=== PATIENT | male | born 1955 | race Caucasian/White ===

== ENCOUNTER → 2024-12-16 | Day surgery (SDC) | payer OTHER, MEDICARE ==
--- NOTE | 2024-12-11 10:36 | RAD REPORT ---
EXAMINATION: TWO VIEW CHEST XR CLINICAL INDICATION: pre op for day surgery TECHNIQUE: 2 views of the chest was performed. COMPARISON: No prior exam. FINDINGS: The lungs are well inflated and clear. The heart is normal in size. No displaced fractures evident. S evere osteoarthritis right shoulder. IMPRESSION: No acute or significant abnormalities.
[2024-12-11 10:55] LABS: Absolute Lymphocytes (CBC) 2.2 K/uL (0.7-4.9); Absolute Monocytes 0.7 K/uL (0.1-1.3); Basophils % 0.4 % (0-1.3); Eosinophils % 0.4 % (0-4.4); Hematocrit 44.5 % (39.6-49.0); Hemoglobin 15.7 g/dL (13.6-17.9); Lymphocytes % 37.3 % (15.3-44.8); MCH 32.1 pg (27.0-35.0); MCHC 35.3 g/dL (32.0-36.0); MCV 90.8 fL (80-100); MPV 8.8 fL (7.6-11.3); Neutrophils % 49.9 % (41.7-73.7); Nucleated Red Blood Cells % 0.1 % (0-0); Platelets 198 thou/uL (152-406); Red Cell Distribution Width 14.1 % (12.1-15.2)
[2024-12-11 11:03] LABS: PT Prothrombin Time 11.4 SECONDS (10-13.0); PTT, Activated Partial Thromb 27.2 SECONDS (27.2-37.4)
[2024-12-11 11:06] LABS: Specific Gravity 1.024 (1.005-1.030); Urine Bilirubin NEGATIVE (Negative); Urine Blood Negative (Negative); Urine Clarity Clear (Clear); Urine Color Light-Yellow (Yellow); Urine Glucose NEGATIVE (Negative); Urine Ketones NEGATIVE (Negative); Urine Microscopic Reflex YN NO UMIC; Urine Nitrite NEGATIVE (Negative); Urine Protein NEGATIVE (Negative); Urine Urobilinogen Normal (Normal); Urine pH 6.5 (5.0-7.0)
[2024-12-11 11:13] LABS: Anion Gap 10.2 mEq/L (5.0-15.0); Potassium 4.2 mEq/L (3.5-5.1)
--- NOTE | 2024-12-15 11:35 | EKG ---
Test Date: 2024-12-11 Test Time: 10:07:58 Casualty Claims Supervisor: MALGORZAAT MEASUREMENT RESULTS: Intervals: Rate: 69 ND: 136 QRSD: 84 QT: 392 QTc: 420 [place]: P: 53 ND: 136 QRS: 65 T: 59 INTERPRETIVE STATEMENTS: Normal sinus rhythm Normal ECG Compared to ECG 11/26/2016 20:50:21 No significant changes Electronically Signed On 12-15-24 11:24:26 CDT by Tristin Pérez
[~2024-12-16] MED LIST: DOCUSATE NA 100 MG CAP PO PRN; EPHEDRINE SULF 50 MG/ML VIAL ONE; FENTANYL CITR 100 MCG/2 ML ONE; KETAMINE HCL IN 0.9 % NACL 50 MG/5 ML SYRINGE IV ONE; LIDOCAINE 1% MPF 5 ML VIAL ONE; LIDOCAINE 2% MPF 5 ML VIAL ONE; MIDAZOLAM HCL 2 MG/2 ML INJ ONE; NS 0.9% VIAL 10 ML ONE; ONDANSETRON 4 MG/2 ML VIAL IV PRN; ONDANSETRON 4 MG/2 ML VIAL ONE; Phenylephrine HCl 10 MG/ML 1 ML VIAL ONE; propofoL 200 MG/20 ML VIAL IV ONE
[2024-12-16] MEDS: DEXMEDETOMIDINE HCL 200 MCG/2 ML VIAL ONE (07:10)
[2024-12-16] MEDS: MORPHINE SULFATE/PF 1 MG/ML (10 ML AMP) ONE (07:10)
[2024-12-16] MEDS: MAGNESIUM SULFATE 1 gm IVPB 1 GM/100 ML BAG IV ONE (07:11)
[2024-12-16] MEDS: Ringers Lactate 1,000 ML IV ONE ×3 (07:15→12:02)
[2024-12-16] MEDS: ACETAMINOPHEN 500 MG TAB ONE (07:24)
[2024-12-16] MEDS: GABAPENTIN 100 MG CAP ONE (07:24)
[2024-12-16] MEDS: CELECOXIB 100 MG CAPSULE ONE (07:24)
[2024-12-16] MEDS: Oxycodone HCl/Acetaminophen 5/325 MG TAB ONE (07:24)
[2024-12-16] MEDS: TRANEXAMIC ACID 1,000 MG/10 ML VIAL IV ONE (07:45)
[2024-12-16] MEDS: CEFAZOLIN SODIUM 2 GM/VIAL ONE (08:39)
--- NOTE | 2024-12-16 10:07 | P.BOP ---
Preoperative diagnosis: right hip arthritis Postoperative diagnosis: same Primary procedure: right total hip Estimated blood loss: 150 ccs Anesthesia: General Complications: None Transferred to: Recovery Room Condition: Good
[2024-12-16 10:57] LABS: Hematocrit 38.8 % (39.6-49.0); Hemoglobin 13.3 g/dL (13.6-17.9)
--- NOTE | 2024-12-16 11:06 | RAD REPORT ---
EXAM: XR Hip Right 1 View HISTORY: [facility] MAIN TOTAL HIP COMPARISON: None TECHNIQUE: One view of the right hip FINDINGS: Acetabular and femoral stem components of right hip arthroplasty in place. Surgical field d efect present at the level of the joint. Other surgical instruments near the midline. No displaced fractures are seen. The visualized soft tissues are otherwise unremarkable. IMPRESSION: Expected intraoperative appearance of right hip arthroplasty components.
--- NOTE | 2024-12-16 12:43 | OP ---
Date of Procedure: 12/16/2024 Surgeon: Ronak Castillo MD Preoperative Diagnosis: Right hip severe arthritis. Postoperative Diagnosis: Right hip severe arthritis. Procedure: Right total hip arthroplasty using the Townsend system. Estimated Blood Loss: 150 cc. Complications: There were no complications. Indications For Operation: Mr. De Paz is a 69-year-old male who has debilitating hip pain. X-rays demonstrate destruction of the hip joint. The pain is in the region of the groin and risks, benefits , and alternatives to total hip arthroplasty have been discussed. He has failed conservative measure s and understands things as presented and wishes to proceed. Description Of Procedure: Patient was taken to the operating room. Spinal anesthesia was obtained b y the Anesthesia staff. Following this, he obtained general anesthesia and a Andersen was placed. He w as then rolled left side down. Right lower extremity was then prepped and draped in usual sterile fa shion for the procedure. Posterior lateral incision was taken down carefully through skin and soft t issues. Meticulous hemostasis being maintained using Bovie electrocautery, this leads to the fascia. A small stab incision was made in the fascia. Gluteal tendons palpated to ensure we were in correc t position. This incision was then brought up until near the tip of the greater trochanter where the gluteus muscles were encountered, which were then spread using finger pressure. Care was taken for placement of the Charnley to avoid injury to the sciatic nerve and the external rotators and capsule were then taken down and tagged for later repair. The hip was then dislocated and a slightly lower t john standard cut was taken with removal of the head, which was then sized using ring gauges. There w as a significant amount of soft tissue within the acetabulum and osteophytes especially anteriorly. These were cleared to allow for good visualization of the acetabulum. It was then sequentially reame d up to a size 55 and the cup was placed in standard fashion. It appears to have good position and f it. Attention was then turned to the femur. molding cutter was used to lateralize and then the canal fi nding reamer was then used. It was then broached up to a size 4. The size 4 broach does stick a lit tle, but size 5 appears that it will be too large. An x-ray was taken at this point, which reveals t hat the acetabulum appears to be in good position. The 4 appears to be appropriately sized as well. A small amount of calcar is removed to allow for more flexed position of the stem and the broach was removed. The liner was then placed. It appears to fit ideally and impacted. After this, the final stem was placed. It appears to have good fit and fill. It was then trialed with a standard. The s marisabeldard relocates and is stable to full flexion, adduction and internal rotation to approximately 40 to 45 degrees. He does have good extension. It was felt that this was appropriate and stable withou t being too tight. This was selected as the final ball. After this, the final ball was then impacte d. It was then relocated and stable in the above areas with good extension. The wound was then irri gated and the external rotators and capsule were then repaired back via bone tunnels as well as soft tissue. It was again irrigated and the fascia was closed in a watertight fashion using heavy Vicryl sutures. It was again irrigated and the skin was closed using Vicryl sutures followed by jose. T he patient was placed in Aquacel dressing, awakened, and taken to recovery room in good condition. N o complications. SE/MODL Voice ID: [id number] Report ID: [id number]
[2024-12-16] MEDS: CEFAZOLIN 1 GM in NA CHLORIDE 0.9% 50 ML IVPB SCH (16:21)
[2024-12-16] MEDS: HYDROCODONE/APAP 7.5/325 MG TAB PO PRN (16:21)
[2024-12-16 16:51] VITALS: BMI 30.5
--- NOTE | 2024-12-16 18:43 | P.CNS ---
Date of Consult: 12/16/24 Reason for Consult: Medical management Chief Complaint: Rt ENDY History of Present Illness: Pt is a 69yo with a history of HTN and hyperlipidemia Allergies duloxetine Adverse Reaction (Verified 12/11/24 09:37) Nausea/Vomiting Home Medications: Aspirin [Aspirin Regimen] 1 tab PO DAILY 12/11/24 Lisinopril/Hydrochlorothiazide [Lisinopril-Hctz 20-25 mg Tab] 1 each PO DAILY 12/11/24 Meloxicam 15 mg PO PRN 12/11/24 Rosuvastatin Calcium 20 mg PO BEDTIME 12/11/24 - Past Medical/Surgical History Diabetic: No -: blood pressure -: high cholesterol -: hernia right 2000 -: black spider bite 80s - Social History Alcohol use: No CD- Drugs: No Caffeine use: No Place of Residence: Home Physical Examination Temp Pulse Resp BP Pulse Ox 97.6 F 64 18 102/55 L 99 12/16/24 16:00 12/16/24 16:00 12/16/24 16:21 12/16/24 16:00 12/16/24 16:21 Laboratory Data (last 24 hrs) 12/16/24 10:38 Hgb 13.3 L Hct 38.8 L
[2024-12-16 21:49] LABS: Hematocrit 36.7 % (39.6-49.0); Hemoglobin 12.9 g/dL (13.6-17.9)
[2024-12-17 04:45] LABS: Hematocrit 35.3 % (39.6-49.0); Hemoglobin 12.2 g/dL (13.6-17.9)
[2024-12-17 07:56] LABS: Absolute Monocytes 1.2 K/uL (0.1-1.3); Absolute Neutrophil 5.9 K/uL (1.8-8.0); Basophils % 0.3 % (0-1.3); Eosinophils % 0.2 % (0-4.4); Hematocrit 35.3 % (39.6-49.0); Hemoglobin 12.3 g/dL (13.6-17.9); Lymphocytes % 21.8 % (15.3-44.8); MCH 31.6 pg (27.0-35.0); MCV 90.3 fL (80-100); MPV 8.1 fL (7.6-11.3); Neutrophils % 64.7 % (41.7-73.7); Platelets 181 thou/uL (152-406); RBC Red Blood Cell Count 3.91 M/uL (4.33-5.43); Red Cell Distribution Width 14.1 % (12.1-15.2)
--- NOTE | 2024-12-17 08:02 | P.DS ---
Discharge Date: 12/17/24 Disposition: DC HOME/HOME HEALTH CARE Discharge Condition: GOOD Reason for Admission: Rt ENDY Brief History of Present Illness: 61-year-old male with a past medical history of hypertension, hyperlipidemia, arthritis, is status post right hip arthroplasty with Dr. Castillo. - Physical Exam General: Alert, Oriented x3, HEENT: Normocephalic, Atraumatic, Normocephalic Neck: Supple Respiratory: Clear to auscultation bilaterally, Normal air movement Cardiovascular: Regular rate/rhythm, No edema, Normal pulses Capillary refill: <2 Seconds Gastrointestinal: Soft and benign Musculoskeletal: Status post right total hip arthroplasty, incision dry and intact Integumentary: No breakdown, No significant lesion Neurological: Normal speech, Normal strength at 5/5 x4 extr Lymphatics: No axilla or inguinal lymphadenopathy Hospital Course: 61-year-old male with a past medical history of hypertension, hyperlipidemia, arthritis, is status post right hip arthroplasty with Dr. Castillo. He was evaluated by physical therapy, pain is controlled with as needed analgesics, plan to discharge home, follow-up with orthopedic surgery after discharge. Discharge medications As needed analgesics take as prescribed after discharge May need stool softeners for constipation, Anticoagulation as per surgery recommendations after discharge Assessment Hypertension resume home meds Hyperlipidemia resume home meds Arthritis, status post right total hip arthroplasty with Dr. Castillo Educated on fall precautions, continue PT after discharge Continue home medicines as previously prescribed GOAL: Clear understanding of disease process INSTRUCTIONS: Physician Discharge Instructions: -Follow-up with orthopedic surgery after -Follow-up with PCP in 1 to 2 weeks -Please call Dr. Gray at [phone] if any questions regarding hospital stay -Please call nursing station at [phone] if any nursing or medication questions -Return to the emergency room if symptoms worsen Diet: ADA, low sodium Activity: Fall precautions Vital Signs/Physical Exam: Temp Pulse Resp BP Pulse Ox 97.1 F 80 16 102/59 L 97 12/17/24 04:00 12/17/24 04:00 12/17/24 04:00 12/17/24 04:00 12/17/24 04:00 Laboratory Data at Discharge: WBC 6.00 thou/uL (4.3-10.9) 12/11/24 10:05 Hgb 12.2 g/dL (13.6-17.9) L 12/17/24 04:01 Hct 35.3 % (39.6-49.0) L 12/17/24 04:01 Plt Count 198 thou/uL (152-406) 12/11/24 10:05 PT 11.4 SECONDS (10-13.0) 12/11/24 10:05 INR 1.00 12/11/24 10:05 APTT 27.2 SECONDS (27.2-37.4) 12/11/24 10:05 Sodium 140 mEq/L (136-145) 12/11/24 10:05 Potassium 4.2 mEq/L (3.5-5.1) 12/11/24 10:05 BUN 23 mg/dL (7-18) H 12/11/24 10:05 Creatinine 1.06 mg/dL (0.70-1.30) 12/11/24 10:05 Glucose 104 mg/dL (74-106) 12/11/24 10:05 Home Medications: Aspirin [Aspirin Regimen] 1 tab PO DAILY 12/11/24 Lisinopril/Hydrochlorothiazide [Lisinopril-Hctz 20-25 mg Tab] 1 each PO DAILY 12/11/24 Meloxicam 15 mg PO PRN 12/11/24 Rosuvastatin Calcium 20 mg PO BEDTIME 12/11/24 Followup: Narendra Bonilla MD [Primary Care Provider] - Ronak Castillo MD [ACTIVE - CAN ADMIT] - Time spent managing pt's care (in minutes): 45
[2024-12-17] MEDS: ENOXAPARIN 40 MG/0.4 ML SQ SCH (10:11)
[2024-12-17] MEDS: NA CHLORIDE 0.9% 1,000 ML IV ONE (12:31)
[2024-12-17 13:25] LABS: Absolute Basophils 0.1 K/uL (0-0.5); Absolute Lymphocytes (CBC) 1.5 K/uL (0.7-4.9); Absolute Monocytes 1.3 K/uL (0.1-1.3); Absolute Neutrophil 8.3 K/uL (1.8-8.0); Basophils % 0.5 % (0-1.3); Eosinophils % 0.1 % (0-4.4); Hematocrit 36.9 % (39.6-49.0); Hemoglobin 12.6 g/dL (13.6-17.9); Lymphocytes % 13.5 % (15.3-44.8); MCH 31.1 pg (27.0-35.0); MCV 91.4 fL (80-100); MPV 7.9 fL (7.6-11.3); Monocytes % 11.3 % (3.3-12.3); Neutrophils % 74.6 % (41.7-73.7); Platelets 168 thou/uL (152-406); RBC Red Blood Cell Count 4.04 M/uL (4.33-5.43); Red Cell Distribution Width 14.2 % (12.1-15.2)
[2024-12-17 13:39] LABS: Albumin 3.1 g/dL (3.4-5.0); Albumin/Globulin Ratio 1.1 (1.1-1.8); Bilirubin Total 1.4 mg/dL (0.2-1.0); Globulin 2.8 g/dL (2.3-3.5); Protein, Total 5.9 g/dL (6.4-8.2); Troponin High Sensitivity 4.4 pg/mL (<58.9)
--- NOTE | 2024-12-17 14:37 | RAD REPORT ---
EXAMINATION: US CAROTID DUPLEX CLINICAL INDICATION: , 69 years old. Syncopal episode. TECHNIQUE: Real-time grayscale, color flow and spectral Doppler sonographic images were obtained of t he extracranial carotid system using a linear transducer. [id number]. COMPARISON: No prior exam. FINDINGS: RIGHT: Common carotid artery: 68 cm/s Internal carotid artery: 132 cm/s External carotid artery: 106 cm/s Right ICA/CCA ratio: 1.9 Plaque Mild Calcified and noncalcified Vertebral artery Antegrade LEFT: Common carotid artery: 143 cm/s Internal carotid artery: 116 cm/s External carotid artery: 136 cm/s lEFT ICA/CCA ratio: 0.8 Plaque Mild Calcified and noncalcified Vertebral artery Antegrade IMPRESSION: 1. Elevated velocities at the right ICA and borderline elevated right ICA/CCA ratio would suggest a m ild to moderate stenosis (close to 50%). 2. Elevated peak systolic velocity in the left common carotid artery but without abnormality on color Doppler is likely not hemodynamically significant. No left carotid system stenosis identified.
[2024-12-17 15:58] VITALS: BP 127/59
[2024-12-17] MEDS: ACETAMINOPHEN 325 MG TABLET PO PRN (16:56)
[2024-12-17] MEDS: NA CHLORIDE 0.9% 1,000 ML IV SCH (16:59)
[2024-12-17 17:45] LABS: Specific Gravity 1.012 (1.005-1.030); Sqamous Epithelial None Seen /HPF (None Seen); Urine Bacteria None Seen /HPF (<20); Urine Bilirubin NEGATIVE (Negative); Urine Blood 1+ (Negative); Urine Clarity Clear (Clear); Urine Color Light-Yellow (Yellow); Urine Crystals Unidentified Few /HPF (None Seen); Urine Culture Reflex Order NOT NEEDED; Urine Glucose NEGATIVE (Negative); Urine Ketones NEGATIVE (Negative); Urine Microscopic Reflex YN ORDER UMIC; Urine Nitrite NEGATIVE (Negative); Urine Protein NEGATIVE (Negative); Urine Urobilinogen Normal (Normal); Urine WBC <5 /HPF (<5)
[2024-12-17] MEDS: CEFTRIAXONE 1,000 MG in NA CHLORIDE 0.9% 50 ML IVPB ONE (20:15)
[2024-12-17] MEDS: NA CHLORIDE 0.9% 500 ML IV ONE (20:56)
[2024-12-17 23:49] VITALS: TEMP 99.1
[2024-12-18 00:54] VITALS: O2SAT 96
== END | disposition home health service (06) ==
LOC: OR 06:39 → 2ND 10:07
PROVIDERS: ATTEND Orthopaedic Surgery
PROC: 0SR90JA Replacement of Right Hip Joint with Synthetic Substitute, Uncemented, Open Approach (ICD-10-PCS; principal; 2024-12-16 08:00)
DX: M16.11 Unilateral primary osteoarthritis, right hip (principal); M25.551 Pain in right hip
CPT/HCPCS: 27130; 93005; 85025; 80048; 36415 ×2; 85610; 88304; 88311; 85730; 85018 ×2; 85014 ×2; 81003; 71046; 73501; 97110; 97116; 97161; 97530 ×2; C1776 ×2; J3475; A4216; J2704; J2003 ×3; J2371; J2250 ×2; J3010; J2405; J7120 ×3; J0690

== ENCOUNTER 2024-12-19 07:18 | Inpatient (IN) | payer OTHER, MEDICARE ==
--- OUTSIDE RECORDS SUMMARY | 2024-12-19 10:25 | XMS REPORT | Continuity of Care Document ---
Author Name Unknown Address [address] [facility] [address] [place] [address] [facility] Address [address] [facility] [address] [place] [address] Care Team Providers Care Recruiting Team Lead Name Role Phone Chad CALERO, Williami Primary Care Physic aracelis [phone] Carson Partida MD Attending Clinician CARSON PARTIDA Attending Clinician Unavailable UNKNOWN, ATTENDING Attending Clinician Unavailab le CARSON PARTIDA Admitting Clinician Unavailable Payers Payer Name Policy Type Policy Number Effective Date Expirati on Date Source [employer] O [id number] 2011 00:00:00 2019 00:00:00 Problems Condition Name Condition Details Condition Category Status Onset Date Resolution Date Last Treatment Date Treating Clinician Comments Source PVT (paroxysma l ventricula r tachycardi a) PVT (paroxysma l ventricula r tachycardi a) Disease Active 2023-09 00:00: 00 [facility] Other chest pain Other chest pain Disease Active 2023-09 00:00: 00 [facility] Other forms of dyspnea Other forms of dyspnea Disease Active 2023-09 00:00: 00 [facility] Primary hypertensi on Primary hypertensi on Disease Active 06-02 00:00: 00 [facility] Hyperlipid emia, unspecifie d hyperlipid emia type Hyperlipid emia, unspecifie d hyperlipid emia type Disease Active 06-02 00:00: 00 [facility] PVC (premature ventricula r contractio n) PVC (premature ventricula r contractio n) Disease Active 06-02 00:00: 00 [facility] Obesity (BMI 30-39.9) Obesity (BMI 30-39.9) Disease Active 06-02 00:00: 00 [facility] Allergies, Adverse Reactions, Alerts Allergy Name Allergy Type Status Severity Reaction(s) Onset Date Inactive Date Treating Clinician Comments Source NO KNOWN ALLERGIE S Drug Class Active [facility] Social History Social Habit Start Date Stop Date Quantity Comments Source Sexual [facility] of Social function 2024-07-07 00:00:00 2024-07-07 00:00:00 [facility] Tobacco use and exposure 2024-06-02 00:00:00 2024-06-02 00:00:00 Smokeless tobacco non-user [facility] Sex assigned at 1955 00:00:00 1955 00:00:00 [facility] Smoking Status Start Date Stop Date Source Never smoked tobacco [facility] Medications Ordered Medication Name Filled Medication Name Start Date Stop Date Current Medication? Ordering Clinician Indication Dosage Frequency Signature (SIG) Comments Components Source lisinopril 20 mg-hydrochl orothiazide 25 mg tablet - 00:00: 00 Yes mg Cody Kvng Lebron rosuvastati n 20 mg tablet - 00:00: 00 Yes mg Cody Kvng Lebron meloxicam 15 mg tablet -12 00:00: 00 Yes 1mg Cody Kvng Lebron tc 99m-tetrofo smin (MYOVIEW) injection 44 millicurie 2023-09 14:15: 00 07-16 14:07 :00 No [id number] 44mCi 44 millicurie , Intravenou s, ONCE, 1 dose, On Sun07/16/24 at 0915, Routine [facility] regadenoson (LEXISCAN) injection 0.4 mg 2023-09 14:00: 07-16 14:26 :00 No [id number] .4mg 0.4 mg, IV Push, ONCE, 1 dose, On Sun07/16/24 at 0900, Routine, fast food team member approving Restricted medication : JARAD GOODE [facility] tc 99m-tetrofo smin (MYOVIEW) injection 15.6 millicurie 2023-09 13:45: 00 07-16 13:33 :00 No [id number] 15.6mCi 15.6 millicurie , Intravenou s, ONCE, 1 dose, On Sun07/16/24 at 0845, Routine [facility] lisinopriL- hydrochloro thiazide 20-25 mg per tablet 2023-09 13:14: 59 Yes 1{tbl} Take 1 tablet by mouth in the morning. [facility] aspirin 81 mg chewable tablet 2023-09 13:14: 59 Yes 81mg Take 1 tablet by mouth in the morning. [facility] mirtazapine 15 mg tablet 2023-09 13:14: 59 Yes 15mg Take 1 tablet by mouth at bedtime. [facility] meloxicam 15 mg tablet 2023-09 00:00: 00 Yes 15mg Take 1 tablet by mouth in the morning. [facility] lisinopril 20 mg-hydrochl orothiazide 25 mg tablet 04-30 00:00: 00 Yes mg Codyabiodun Fernandez rosuvastati n 20 mg tablet 04-30 00:00: 00 Yes mg Cody Fernandez meloxicam 15 mg tablet 04-30 00:00: 00 Yes 1mg Cody Fernandez rosuvastati n 20 mg tablet 04-30 00:00: 00 Yes 20mg Take 1 tablet by mouth every morning. [facility] rosuvastati n 20 mg tablet 01-01 00:00: 00 Yes mg Cody Fernandez lisinopril 20 mg-hydrochl orothiazide 25 mg tablet 01-01 00:00: 00 Yes mg Cody Fernandez mirtazapine 15 mg tablet -17 00:00: 00 Yes 1mg Cody Fernandez METHYLPREDN ISOLONE DOSE PACK 4 MG TBPK 4-17 00:00: 00 Yes Cody Fernandez USE ONE TO TWO TIMES TO BRUSH TEETH EVERY DAY DIRECTED 4-03 00:00: 00 Yes Cody Fernandez TAKE 1 TABLET QHS DIRECTED 2-19 00:00: 00 Yes 100 Cody Fernandez rosuvastati n 20 mg tablet 2022-09 2-21 00:00: 00 Yes mg Cody Fernandez lisinopril 20 mg-hydrochl orothiazide 25 mg tablet -14 00:00: 00 Yes mg Cody Fernandez TAKE 1 TABLET DAILY. 05-31 00:00: 00 01-22 00:00 :00 No 20 Cody Fernandez TAKE 1 TABLET BY MOUTH TWICE DAILY 9- 00:00: 00 Yes Cody Fernandez ROSUVASTATI N CALCIUM 20 MG TABS - 00:00: 00 Yes Cody Fernandez TAKE 1 TABLET DAILY. 12-18 00:00: 00 01-22 00:00 :00 No 20 Cody Fernandez ROSUVASTATI N CALCIUM 20 MG TABS 1-25 00:00: 00 Yes Cody Fernandez Dose Unknown -12 00:00: 00 01-22 00:00 :00 No Cody Fernandez TAKE 1 DAILY - 00:00: 00 01-22 00:00 :00 No 60 Cody Fernandez IBUPROFEN 600 MG TABS 1-11 00:00: 00 Yes Cody Fernandez TAKE 1 TABLET DAILY. - 00:00: 00 01-22 00:00 :00 No 20 Cody Fernandez TAKE 1 TABLET BY MOUTH TWICE DAILY 2021-09- 00:00: 00 Yes Cody Fernandez TAKE 1 TABLET 3 TIMES DAILY WITH FOOD NEEDED. 2021-09 00:00: 00 01-22 00:00 :00 No 600 Cody Fernandez TAKE DIRECTED. 2021-09 00:00: 00 01-22 00:00 :00 No 4 Cody Fernandez Dose Unknown 2021-09 2- 00:00: 00 No Dose Unknown 2021-09 2 00:00: 00 01-22 00:00 :00 No Cody Fernandez PREVIDENT 5000 BSTR PLUS PASTE/MINT 0 6- 00:00: 00 Yes Cody Fernandez Lodine 400 mg tablet 0 03-06 00:00: 00 Yes 1mg Cody Fernandez &lt 0 - 00:00: 00 Yes Cody Fernandez Dose Unknown 0 03-06 00:00: 00 No &lt 2021-0 03-06 00:00: 00 No lisinopril 20 mg-hydrochl orothiazide 25 mg tablet 0 - 00:00: 00 Yes 1mg Cody Fernandez Lodine 400 mg tablet 0 02-15 00:00: 00 Yes 1mg Cody Fernandez rosuvastati n 20 mg tablet 0 - 00:00: 00 Yes 1mg Cody Fernandez Remeron 15 mg tablet 0 6- 00:00: 00 Yes 1mg Cody Fernandez MIRTAZAPINE 15 MG TABS 0 - 00:00: 00 Yes Cody Fernandez lisinopril 20 mg-hydrochl orothiazide 25 mg tablet 0 - 00:00: 00 No 1mg Dose Unknown 0 6- 00:00: 00 No rosuvastati n 20 mg tablet 0 6- 00:00: 00 No 1mg Remeron 15 mg tablet 0 6- 00:00: 00 No 1mg lisinopril 20 mg-hydrochl orothiazide 25 mg tablet 2021-0 -16 00:00: 00 Yes 1mg Cody Fernandez rosuvastati n 20 mg tablet 0 -16 00:00: 00 Yes 1mg Cody Fernandez lisinopril 20 mg-hydrochl orothiazide 25 mg tablet 2021-0 -16 00:00: 00 No 1mg rosuvastati n 20 mg tablet 2021-0 5-16 00:00: 00 No 1mg Dose Unknown 0 - 00:00: 00 Yes Cody Fernandez Dose Unknown 0 - 00:00: 00 Yes Cody Fernandez Dose Unknown 0 - 00:00: 00 No Dose Unknown 0 01-17 00:00: 00 No lisinopril 20 mg-hydrochl orothiazide 25 mg tablet 2020-09- 00:00: 00 Yes 1mg Cody Fernandez lisinopril 20 mg-hydrochl orothiazide 25 mg tablet 2020-09 00:00: 00 No 1mg rosuvastati n 20 mg tablet 0 03-14 00:00: 00 Yes 1mg Cody Fernandez duloxetine 30 mg capsule,del ayed release 03-14 00:00: 00 Yes 1mg Cody Fernandez rosuvastati n 20 mg tablet 0 03-14 00:00: 00 No 1mg duloxetine 30 mg capsule,del ayed release 0 03-14 00:00: 00 No 1mg lisinopril 20 mg-hydrochl orothiazide 25 mg tablet 01-24 00:00: 00 Yes 1mg Cody Fernandez lisinopril 20 mg-hydrochl orothiazide 25 mg tablet 01-24 00:00: 00 No 1mg rosuvastati n 20 mg tablet 0 11-24 00:00: 00 Yes 1mg Cody Fernandez rosuvastati n 20 mg tablet 0 - 00:00: 00 No 1mg Viagra 100 mg tablet - 00:00: 00 Yes 1mg Cody Fernandez Viagra 100 mg tablet - 00:00: 00 No 1mg duloxetine 30 mg capsule,del ayed release 2019-09- 00:00: 00 Yes 1mg Cody Fernandez duloxetine 30 mg capsule,del ayed release 2019-09 00:00: 00 No 1mg lisinopril 20 mg-hydrochl orothiazide 25 mg tablet 2019-09 00:00: 00 Yes 1mg Cody Fernandez rosuvastati n 20 mg tablet 2019-09 00:00: 00 Yes 1mg Cody Fernandez lisinopril 20 mg-hydrochl orothiazide 25 mg tablet 2019-09- 00:00: 00 No 1mg rosuvastati n 20 mg tablet 2019-09- 00:00: 00 No 1mg ketoconazol e 2 % topical cream 2019-0 8- 00:00: 00 Yes 1% Cody Fernandez lisinopril 20 mg-hydrochl orothiazide 25 mg tablet 0 8-04 00:00: 00 Yes 1mg Cody Fernandez rosuvastati n 20 mg tablet 0 8-04 00:00: 00 Yes 1mg Cody Fernandez ketoconazol e 2 % topical cream 0 8- 00:00: 00 No 1% lisinopril 20 mg-hydrochl orothiazide 25 mg tablet 8- 00:00: 00 No 1mg rosuvastati n 20 mg tablet 0 8- 00:00: 00 No 1mg lisinopril 20 mg-hydrochl orothiazide 25 mg tablet 0 5-04 00:00: 00 Yes 1mg Cody Fernandez rosuvastati n 20 mg tablet 0 5-04 00:00: 00 Yes 1mg Cody Fernandez rosuvastati n 20 mg tablet 0 5-04 00:00: 00 No 1mg lisinopril 20 mg-hydrochl orothiazide 25 mg tablet 0 5- 00:00: 00 No 1mg ketoconazol e 2 % topical cream 0 1-30 00:00: 00 Yes 1% Cody Fernandez lisinopril 20 mg-hydrochl orothiazide 25 mg tablet 0 1-30 00:00: 00 Yes 1mg Cody Fernandez rosuvastati n 20 mg tablet 0 1-30 00:00: 00 Yes 1mg Cody Fernandez ketoconazol e 2 % topical cream 0 1-30 00:00: 00 No 1% lisinopril 20 mg-hydrochl orothiazide 25 mg tablet 0 1-30 00:00: 00 No 1mg rosuvastati n 20 mg tablet 0 1-30 00:00: 00 No 1mg aspirin 81 mg chewable tablet 10-14 00:00: 00 Yes 1mg Cody Fernandez lisinopril 20 mg-hydrochl orothiazide 25 mg tablet 10-14 00:00: 00 Yes 1mg Cody Fernandez rosuvastati n 20 mg tablet 10-14 00:00: 00 Yes 1mg Cody Fernandez aspirin 81 mg chewable tablet 10-14 00:00: 00 No 1mg lisinopril 20 mg-hydrochl orothiazide 25 mg tablet 10-14 00:00: 00 No 1mg rosuvastati n 20 mg tablet 10-14 00:00: 00 No 1mg Immunizations Ordered Immunization Name Filled Immunization Name Date Status Comments Source Moderna COVID-19 Vaccine Moderna COVID-19 Vaccine 2021-08-19 00:00:00 Completed Cody Fernandez Moderna COVID-19 Vaccine Moderna COVID-19 Vaccine 2020-12-31 00:00:00 Completed Cody Fernandez Moderna COVID-19 Vaccine Moderna COVID-19 Vaccine 2020-12-03 00:00:00 Completed Cody Fernandez Vital Signs Vital Name Observation Time Observation Value Comments S ourmela Systolic blood pressure 2024-07-07 18:15:00 137 mm[Hg] [facility] Diastolic blood pressure 2024-07-07 18:15:00 81 mm[Hg] [facility] Heart rate 2024-07-07 18:15:00 73 /min [facility] Body temperature 2024-07-07 18:15:00 36.94 Marlen [facility] Body height 2024-07-07 18:15:[address] [facility] Body weight 2024-07-07 18:15:[address] [facility] BMI 2024-07-07 18:15:00 30.54 kg/m2 [facility] Oxygen saturation in Arterial blood by Pulse oximetry 2024-07-07 18:15:00 95 /min [facility] Systolic blood pressure 2024-06-02 18:57:00 126 mm[Hg] [facility] Diastolic blood pressure 2024-06-02 18:57:00 73 mm[Hg] [facility] Heart rate 2024-06-02 18:57:00 79 /[facility] 2024-06-02 18:57:00 36.5 Marlen [facility] Respiratory rate 2024-06-02 18:57:00 16 /min [facility] Body height 2024-06-02 18:57:[address] [facility] Body weight 2024-06-02 18:57:[address] [facility] BMI 2024-06-02 18:57:00 31.04 kg/m2 [facility] Oxygen saturation in Arterial blood by Pulse oximetry 2024-06-02 18:57:00 96 /min Aneta o [facility] BP Systolic 2024-10-29 10:37:00 122 mm[Hg] Step hen F Lebron BP Diastolic 2024-10-29 10:37:00 78 mm[Hg] Jerson phen F Lebron Weight Measured 2024-10-29 10:37:00 195.80 pounds Cody F Lebron Height Measured 2024-10-29 10:37:00 67.00 inches Cody F Lebron Body Temperature 2024-10-29 10:37:00 97.90 degrees Cody F Lebron Heart Rate 2024-10-29 10:37:00 69.00 /min Chacha en F Lebron Respiratory Rate 2024-10-29 10:37:00 Cody F Lebron BP Systolic 2024-07-30 10:33:00 124 mm[Hg] Step hen F Lebron BP Diastolic 2024-07-30 10:33:00 80 mm[Hg] Jerson phen F Lebron Weight Measured 2024-07-30 10:33:00 194.20 pounds Cody F Lebron Height Measured 2024-07-30 10:33:00 67.00 inches Cody F Lebron Body Temperature 2024-07-30 10:33:00 98.10 degrees Cody F Lebron Heart Rate 2024-07-30 10:33:00 67.00 /min Chacha en F Lebron Respiratory Rate 2024-07-30 10:33:00 Cody F Leborn BP Systolic 2024-04-30 09:55:00 131 mm[Hg] Step hen F Lebron BP Diastolic 2024-04-30 09:55:00 86 mm[Hg] Jerson phen F Lebron Weight Measured 2024-04-30 09:55:00 201.20 pounds Cody F Lebron Height Measured 2024-04-30 09:55:00 67.00 inches Cody F Lebron Body Temperature 2024-04-30 09:55:00 97.60 degrees Cody F Lebron Heart Rate 2024-04-30 09:55:00 97.00 /min Chacha en F Lebron Respiratory Rate 2024-04-30 09:55:00 Cody F Lebron Height Measured 2024-01-02 09:55:00 67.00 inches Cody F Lebron Body Temperature 2024-01-02 09:55:00 97.20 degrees Cody F Lebron Heart Rate 2024-01-02 09:55:00 72.00 /min Chacha en F Lebron Respiratory Rate 2024-01-02 09:55:00 Cody F Lebron BP Systolic 2024-01-02 09:55:00 116 mm[Hg] Step hen F Lebron BP Diastolic 2024-01-02 09:55:00 73 mm[Hg] Jerson phen F Lebron Weight Measured 2024-01-02 09:55:00 194.40 pounds Cody F Lebron BP Systolic 2023-08-29 14:33:00 121 mm[Hg] Step hen F Lebron BP Diastolic 2023-08-29 14:33:00 75 mm[Hg] Jerson phen F Lebron Weight Measured 2023-08-29 14:33:00 200.20 pounds Cody F Lebron Height Measured 2023-08-29 14:33:00 67.00 inches Cody F Lebron Body Temperature 2023-08-29 14:33:00 97.60 degrees Cody F Lebron Heart Rate 2023-08-29 14:33:00 73.00 /min Chacha en F Lebron Respiratory Rate 2023-08-29 14:33:00 Cody F Lebron BP Systolic 2023-05-30 17:12:00 131 mm[Hg] Step hen F Lebron BP Diastolic 2023-05-30 17:12:00 85 mm[Hg] Jerson phen F Lebron Weight Measured 2023-05-30 17:12:00 209.00 pounds Cody F Lebron Height Measured 2023-05-30 17:12:00 67.00 inches Cody F Lebron Body Temperature 2023-05-30 17:12:00 98.60 degrees Cody F Lebron Heart Rate 2023-05-30 17:12:00 89.00 /min Chacha en F Lebron Respiratory Rate 2023-05-30 17:12:00 Cody F Lebron BP Systolic 2022-12-18 11:17:00 143 mm[Hg] Step hen F Lebron BP Diastolic 2022-12-18 11:17:00 90 mm[Hg] Jerson phen F Lebron Weight Measured 2022-12-18 11:17:00 208.20 pounds Cody F Lebron Height Measured 2022-12-18 11:17:00 67.00 inches Cody F Lebron Body Temperature 2022-12-18 11:17:00 97.90 degrees Cody F Lebron Heart Rate 2022-12-18 11:17:00 76.00 /min Chacha en F Lebron Respiratory Rate 2022-12-18 11:17:00 Cody F Lebron BP Systolic 2022-10-11 11:37:00 144 mm[Hg] Step hen F Lebron BP Diastolic 2022-10-11 11:37:00 85 mm[Hg] Jerson phen F Lebron Weight Measured 2022-10-11 11:37:00 204.20 pounds Cody F Lebron Height Measured 2022-10-11 11:37:00 67.00 inches Cody F Lebron Body Temperature 2022-10-11 11:37:00 97.90 degrees Cody F Lebron Heart Rate 2022-10-11 11:37:00 78.00 /min Chacha en F Lebron Respiratory Rate 2022-10-11 11:37:00 Cody F Lebron BP Systolic 2022-02-15 13:49:00 121 mm[Hg] Step hen F Lebron BP Diastolic 2022-02-15 13:49:00 79 mm[Hg] Jerson phen F Lebron Weight Measured 2022-02-15 13:49:00 191.60 pounds Cody F Lebron Height Measured 2022-02-15 13:49:00 67.00 inches Cody F Lebron Body Temperature 2022-02-15 13:49:00 98.00 degrees Cody F Lebron Heart Rate 2022-02-15 13:49:00 91.00 /min Chacha en F Lebron Respiratory Rate 2022-02-15 13:49:00 Cody F Lebron BP Systolic 2021-07-27 09:53:00 123 mm[Hg] Step hen F Lebron BP Diastolic 2021-07-27 09:53:00 78 mm[Hg] Jerson phen F Lebron Weight Measured 2021-07-27 09:53:00 197.40 pounds Cody F Lebron Height Measured 2021-07-27 09:53:00 67.00 inches Ocdy F Lebron Body Temperature 2021-07-27 09:53:00 97.80 degrees Cody F Lebron Heart Rate 2021-07-27 09:53:00 77.00 /min Chacha en F Lebron Respiratory Rate 2021-07-27 09:53:00 Cody F Lebron BP Systolic 2021-03-14 08:50:00 120 mm[Hg] Step hen F Lebron BP Diastolic 2021-03-14 08:50:00 75 mm[Hg] Jerson phen F Lebron Weight Measured 2021-03-14 08:50:00 195.80 pounds Cody F Lebron Height Measured 2021-03-14 08:50:00 67.00 inches Cody F Lebron Body Temperature 2021-03-14 08:50:00 97.50 degrees Cody F Lebron Heart Rate 2021-03-14 08:50:00 77.00 /min Chacha en F Lebron Respiratory Rate 2021-03-14 08:50:00 Cody F Lebron BP Systolic 2020-11-15 09:11:00 123 mm[Hg] Step hen F Lebron BP Diastolic 2020-11-15 09:11:00 81 mm[Hg] Jerson phen F Lebron Weight Measured 2020-11-15 09:11:00 198.80 pounds Cody F Lebron Height Measured 2020-11-15 09:11:00 67.00 inches Cody F Lebron Body Temperature 2020-11-15 09:11:00 98.40 degrees Cody F Lebron Heart Rate 2020-11-15 09:11:00 90.00 /min Chacha en F Lebron Respiratory Rate 2020-11-15 09:11:00 Cody F Lebron BP Systolic 2020-07-13 10:01:00 143 mm[Hg] Step hen F Lebron BP Diastolic 2020-07-13 10:01:00 88 mm[Hg] Jerson phen F Lebron Weight Measured 2020-07-13 10:01:00 212.20 pounds Cody Fernandez Height Measured 2020-07-13 10:01:00 67.00 inches Cody F Lebron Body Temperature 2020-07-13 10:01:00 97.40 degrees Codyabiodun Fernandez Heart Rate 2020-07-13 10:01:00 75.00 /min Chacha en F Lebron Respiratory Rate 2020-07-13 10:01:00 Codyabiodun Fernandez BP Systolic 2020-04-20 08:42:00 135 mm[Hg] BP Diastolic 2020-04-20 08:42:00 84 mm[Hg] Weight Measured 2020-04-20 08:42:00 207.00 pounds Height Measured 2020-04-20 08:42:00 67.00 inches Body Temperature 2020-04-20 08:42:00 Heart Rate 2020-04-20 08:42:00 Respiratory Rate 2020-04-20 08:42:00 Heart Rate 2020-01-19 09:55:00 72.00 /min Respiratory Rate 2020-01-19 09:55:00 BP Systolic 2020-01-19 09:55:00 117 mm[Hg] BP Diastolic 2020-01-19 09:55:00 70 mm[Hg] Weight Measured 2020-01-19 09:55:00 202.00 pounds Height Measured 2020-01-19 09:55:00 67.00 inches Body Temperature 2020-01-19 09:55:00 BP Systolic 2019-10-14 09:45:00 122 mm[Hg] BP Diastolic 2019-10-14 09:45:00 79 mm[Hg] Weight Measured 2019-10-14 09:45:00 206.00 pounds Height Measured 2019-10-14 09:45:00 67.00 inches Body Temperature 2019-10-14 09:45:00 Heart Rate 2019-10-14 09:45:00 76.00 /min Respiratory Rate 2019-10-14 09:45:00 16.00 /min Procedures Procedure Date / Time Performed Performing Clinicia n Source NM MYOCARDIUM PERFUSION STRESS AND REST 2024-07-16 15:29:00 Carson Partida [facility] MYOCARDIUM PERFUSION STRESS AND REST 2024-07-16 15:29:00 Carson Partida [facility] NM MYOCARDIUM PERFUSION STRESS AND REST 2024-07-16 15:29:00 Carson Partida [facility] NM MYOCARDIUM PERFUSION STRESS AND REST 2024-07-16 15:29:00 Carson Partida [facility] Ekg 2020-07-13 00:00:00 Cody F Lebron Plan of Care Planned Activity Planned Date Details Comments Source Goal Plan of Care Note [code = 57061-0] Goal Plan of Care Note [code = 75210-2] Goal Plan of Care Note [code = 45230-2] Goal Plan of Care Note [code = 09879-5] Goal Plan of Care Note [code = 40113-8] Goal Plan of Care Note [code = 89092-9] Goal Plan of Care Note [code = 87429-6] Goal Plan of Care Note [code = 04994-9] Goal Plan of Care Note [code = 10043-5] Goal Plan of Care Note [code = 17036-4] Goal Plan of Care Note [code = 92171-0] Goal Plan of Care Note [code = 91777-4] Goal Plan of Care Note [code = 09692-7] Goal Plan of Care Note [code = 55434-1] Encounters Start Date/Time End Date/Time Encounter Type Admission Type Attending Clinicians [facility] Facility Care Department Encounter ID Source 2024-11-04 00:00:00 2024-11-04 13:38:09 Telephone Carson Partida [facility] 1.2.840.114 350.1.13.10 4.2.7.2.686 [id number] [facility] 2024-10-29 10:37:26 2024-10-29 10:37:26 Outpatient SFA SFA [id number] Cody F Lebron 2024-10-29 00:00:00 2024-10-29 00:00:[address] [facility] [id number] Cody F Lebron 2024-07-16 00:00:00 2024-08-16 18:17:29 Patient Secure Msg Carson Partida [facility] 1.2.840.114 350.1.13.10 4.2.7.2.686 [id number] [facility] 2024-07-30 10:32:54 2024-07-30 10:32:[address] [facility] [id number] Cody Fernandez 2024-07-30 00:00:00 2024-07-30 00:00:[address] [facility] [id number] Cody Fernandez 2024-07-16 07:48:56 2024-07-16 23:59:00 Hospital Encounter Carson Partida [facility] 1.2.840.114 350.1.13.10 4.2.7.2.686 [id number] [facility] 2024-07-16 07:48:49 2024-07-16 23:59:00 Hospital Encounter Carson Partida [facility] 1.2.840.114 350.1.13.10 4.2.7.2.686 [id number] [facility] 2024-07-16 07:48:42 2024-07-16 23:59:00 Hospital Encounter Carson Partida [facility] 1.2.840.114 350.1.13.10 4.2.7.2.686 [id number] [facility] 2024-07-16 07:47:16 2024-07-16 07:47:16 Hospital Encounter Carson Partida [facility] 1.2.840.114 350.1.13.10 4.2.7.2.686 [id number] [facility] 2024-07-16 07:47:16 2024-07-16 07:47:16 [facility] [id number] [facility] 2024-06-11 00:00:00 2024-07-12 18:21:14 Patient Secure Msg Helga [facility] 1.2.840.114 350.1.13.10 4.2.7.2.686 [id number] [facility] 2024-07-07 13:20:00 2024-07-07 13:35:49 [facility] [id number] [facility] 2024-07-07 13:20:00 2024-07-07 13:35:49 [facility] 1.2.840.114 350.1.13.10 4.2.7.2.686 [id number] [facility] 2024-06-30 00:00:00 2024-06-30 15:48:45 Telephone Helga [facility] 1.2.840.114 350.1.13.10 4.2.7.2.686 [id number] [facility] 2024-06-09 13:41:09 2024-06-09 23:59:00 [facility] [id number] [facility] 2024-06-09 13:41:09 2024-06-09 23:59:00 [facility] 1.2.840.114 350.1.13.10 4.2.7.2.686 [id number] [facility] 2024-06-02 14:19:14 2024-06-02 23:59:00 [facility] 1.2.840.114 350.1.13.10 4.2.7.2.686 [id number] [facility] 2024-06-02 14:19:14 2024-06-02 23:59:00 Outpatient R CARSON PARTIDA [facility] [id number] [facility] 2024-06-02 14:00:00 2024-06-02 14:21:15 Office Visit Carson Partida [facility] 1.2.840.114 350.1.13.10 4.2.7.2.686 [id number] [facility] 2024-04-30 09:54:32 2024-04-30 09:54:32 Outpatient SFA SFA [id number] Cody Fernandez 2024-04-30 00:00:00 2024-04-30 00:00:00 Outpatient Visit SFA [id number] Cody Fernandez 2024-01-02 09:55:26 2024-01-02 09:55:26 Outpatient SFA SFA [id number] Cody Fernandez 2024-01-02 00:00:00 2024-01-02 00:00:00 Outpatient Visit SFA [id number] Cody Fernandez 2023-08-29 14:31:22 2023-08-29 14:31:22 Outpatient SFA SFA [id number] Cody Fernandez 2023-05-30 15:40:16 2023-05-30 15:40:16 Outpatient SFA SFA [id number] Cody Fernandez 2022-12-18 11:11:49 2022-12-18 11:11:49 Outpatient SFA SFA [id number] Cody Fernandez 2022-10-11 11:53:04 2022-10-11 11:53:04 Outpatient SFA SFA [id number] Cody Fernandez 2022-09-14 00:00:00 2022-09-14 00:00:00 Outpatient Visit [id number] 2020-07-27 10:30:00 2020-07-27 10:30:00 Outpatient R UNKNOWN, ATTENDING [facility] [id number] [facility] Results Test Description Test Time Test Comments Results Result Co mments Source Cody Calderon LebronCOMPREHENSIVE METABOLIC [id number] 00:00:00* Test Item Value Reference Range Interpretation Comme nts GLUCOSE (test code = 2345-7) 105 mg/dL UREA NITROGEN (BUN) (test code = 3094-0) 15 mg/dL CREATININE (test code = 2160-0) 1.04 mg/dL EGFR (test code = 10085-1) 77 mL/min/1.73m2 BUN/CREATININE RATIO (test code = 3097-3) SEE NOTE: (calc) SODIUM (test code = 2951-2) 141 mmol/L POTASSIUM (test code = 2823-3) 3.9 mmol/L CHLORIDE (test code = 2075-0) 102 mmol/L CARBON DIOXIDE (test code = 2027-9) 27 mmol/L CALCIUM (test code = 51836-8) 9.3 mg/dL PROTEIN, TOTAL (test code = 2885-2) 6.9 g/dL ALBUMIN (test code = 1751-7) 4.6 g/dL GLOBULIN (test code = 59290-4) 2.3 g/dL(calc) ALBUMIN/GLOBULIN RATIO (test code = 1759-0) 2.0 (calc) BILIRUBIN, TOTAL (test code = 1975-2) 1.5 mg/dL ALKALINE PHOSPHATASE (test code = 6768-6) 57 U/L AST (test code = 1920-8) 19 U/L ALT (test code = 1742-6) 16 U/L Cody FernandezHEMOGLOBIN [id number] 00:00:00* Test Item Value Reference Range Interpretation Comme nts HEMOGLOBIN A1c (test code = 4548-4) 5.9 %oftotalHgb Cody Kvng FernandezLIPID PANEL (REFL)2024-04-22 23:38:00* Test Item Value Reference Range Interpretation Comme nts CHOLESTEROL, TOTAL (test code = 17737792) 147 mg/dL <200 N HDL CHOLESTEROL (test code = 94077620) 45 mg/dL >=40 N TRIGLYCERIDES (test code = 92579565) 137 mg/dL <150 N LDL-CHOLESTEROL (test code = 07429864) 78 mg/dL (calc) N Reference range: <100 Desirable range <100 mg/dL for primary prevention; <70 mg/dL for patients with CHD or diabetic patients with > or = 2 CHD risk factors. LDL-C is now calculated using the Abhi-Fry calculation, which is a validated novel method providing better accuracy than the Friedewald equation in the estimation of LDL-C. Abhi SS et al. ESTEFANY. 2013;310(19): 8461-0156 (http://education.Heap.Vputi /faq/SLD814) CHOL/HDLC RATIO (test code = 94116442) 3.3 (calc) <5.0 N NON HDL CHOLESTEROL (test code = 34815324) 102 mg/dL (calc) <130 N For patients with diabetes plus 1 major ASCVD risk factor, treating to a non-HDL-C goal of <100 mg/dL (LDL-C of <70 mg/dL) is considered a therapeutic option. FASTING:DOC Kvng [facility] [id number] 23:38:00* Test Item Value Reference Range Interpretation Comme nts GLUCOSE (test code = 86861179) 105 mg/dL 65-99 H Fasting referenc e interval For someone without known diabetes, a glucose valuebetween 100 and 125 mg/dL is consistent withprediabetes and should be confirmed with afollow-up test. UREA NITROGEN (BUN) (test code = 93935629) 13 mg/dL 7-25 N CREATININE (test code = 88671138) 1.08 mg/dL 0.70-1.35 N EGFR (test code = 41982670) 74 mL/min/1.73m2 >=60 N BUN/CREATININE RATIO (test code = 53058442) SEE NOTE: (calc) 6-22 N Not Reported: BUN an d Creatinine are within reference range. SODIUM (test code = 42646793) 141 mmol/L 135-146 N POTASSIUM (test code = 67186146) 3.6 mmol/L 3.5-5.3 N CHLORIDE (test code = 86617198) 104 mmol/L 98-110 N CARBON DIOXIDE (test code = 01544856) 30 mmol/L 20-32 N CALCIUM (test code = 71072905) 9.3 mg/dL 8.6-10.3 N PROTEIN, TOTAL (test code = 46104667) 6.9 g/dL 6.1-8.1 N ALBUMIN (test code = 64227023) 4.4 g/dL 3.6-5.1 N GLOBULIN (test code = 32256981) 2.5 g/dL (calc) 1.9-3.7 N ALBUMIN/GLOBULIN RATIO (test code = 21830443) 1.8 (calc) 1.0-2.5 N BILIRUBIN, TOTAL (test code = 31680476) 1.3 mg/dL 0.2-1.2 H ALKALINE PHOSPHATASE (test code = 97216356) 55 U/L 35-144 N AST (test code = 45011558) 20 U/L 10-35 N ALT (test code = 96001868) 15 U/L 9-46 N FASTING:DOC Calderon [facility]MO[facility]IN [id number] 23:38:00* Test Item Value Reference Range Interpretation Comments HEMOGLOBIN A1c (test code = 41079424) 6.1 % of total Hgb <5.7 H For someone without known diabetes, a hemoglobin A1c value between 5.7% and 6.4% is consistent withprediabetes and should be confirmed with a follow-up test. For someone with known diabetes, a value <7%indicates that their diabetes is well controlled. [id number] should be individualized based on duration ofdiabetes, age, comorbid conditions, and otherconsiderations. This assay result is consistent with an increased riskof diabetes. Currently, no consensus exists regarding use ofhemoglobin A1c for diagnosis of diabetes for children. This test was performed on the Angelica calli c503 platform.Effective 07/30/23, a change in test platforms from the[place] to the Angelica calli c503 may have [id number] results compared to historical results.Based on laboratory validation testing conducted at[facility], the Angelica platform relative to the Accupalform had an average increase in HbA1c value of< or = 0.3%. This difference is within accepted variability established by the National GlycohemoglobinStandardization Program. Note that not all individualswill have had a shift in their results and directcomparisons between historical and current results fortesting conducted on different platforms is notrecommended. FASTING:YESSTEPABIODUN FERNANDEZ COMMUNITYLIPID PANEL (REFL)2024-04-22 00:00:00* Test Item Value Reference Range Interpretation Comme nts CHOLESTEROL, TOTAL (test cod e = 2093-3) 147 mg/dL HDL CHOLESTEROL (test code = 2085-9) 45 mg/dL TRIGLYCERIDES (test code = 2571-8) 137 mg/dL LDL-CHOLESTEROL (test code = 78119-4) 78 mg/dL(calc) CHOL/HDLC RATIO (test code = 9830-1) 3.3 (calc) NON HDL CHOLESTEROL (test code = 87884-4) 102 mg/dL(calc) Cody FernandezCOMPREHENSIVE METABOLIC [id number] 00:00:00* Test Item Value Reference Range Interpretation Comme nts GLUCOSE (test code = 2345-7) 105 mg/dL UREA NITROGEN (BUN) (test code = 3094-0) 13 mg/dL CREATININE (test code = 2160-0) 1.08 mg/dL EGFR (test code = 77793-9) 74 mL/min/1.73m2 BUN/CREATININE RATIO (test code = 3097-3) SEE NOTE: (calc) SODIUM (test code = 2951-2) 141 mmol/L POTASSIUM (test code = 2823-3) 3.6 mmol/L CHLORIDE (test code = 5-0) 104 mmol/L CARBON DIOXIDE (test code = 2027-) 30 mmol/L CALCIUM (test code = 92618-9) 9.3 mg/dL PROTEIN, TOTAL (test code = 2885-2) 6.9 g/dL ALBUMIN (test code = 1751-7) 4.4 g/dL GLOBULIN (test code = 02737-1) 2.5 g/dL(calc) ALBUMIN/GLOBULIN RATIO (test code = 1759-0) 1.8 (calc) BILIRUBIN, TOTAL (test code = 1975-2) 1.3 mg/dL ALKALINE PHOSPHATASE (test code = 6768-6) 55 U/L AST (test code = 1920-8) 20 U/L ALT (test code = 1742-6) 15 U/L Cody eFrnandezHEMOGLOBIN [id number] 00:00:00* Test Item Value Reference Range Interpretation Comme elisabeth HEMOGLOBIN A1c (test code = 4548-4) 6.1 %oftotalHgb Cody FernandezLIPID PANEL (REFL)2024-04-22 00:00:00* Test Item Value Reference Range Interpretation Comme nts CHOLESTEROL, TOTAL (test cod e = 2093-3) 147 mg/dL HDL CHOLESTEROL (test code = 2085-9) 45 mg/dL TRIGLYCERIDES (test code = 2571-8) 137 mg/dL LDL-CHOLESTEROL (test code = 37583-7) 78 mg/dL(calc) CHOL/HDLC RATIO (test code = 9830-1) 3.3 (calc) NON HDL CHOLESTEROL (test code = 80720-7) 102 mg/dL(calc) Cody FernandezCOMPREHENSIVE METABOLIC [id number] 00:00:00* Test Item Value Reference Range Interpretation Comme nts GLUCOSE (test code = 2345-7) 105 mg/dL UREA NITROGEN (BUN) (test code = 3094-0) 13 mg/dL CREATININE (test code = 2160-0) 1.08 mg/dL EGFR (test code = 55437-7) 74 mL/min/1.73m2 BUN/CREATININE RATIO (test code = 3097-3) SEE NOTE: (calc) SODIUM (test code = 2951-2) 141 mmol/L POTASSIUM (test code = 2823-3) 3.6 mmol/L CHLORIDE (test code = 2075-0) 104 mmol/L CARBON DIOXIDE (test code = 2027-9) 30 mmol/L CALCIUM (test code = 62905-9) 9.3 mg/dL PROTEIN, TOTAL (test code = 2885-2) 6.9 g/dL ALBUMIN (test code = 1751-7) 4.4 g/dL GLOBULIN (test code = 87151-7) 2.5 g/dL(calc) ALBUMIN/GLOBULIN RATIO (test code = 1759-0) 1.8 (calc) BILIRUBIN, TOTAL (test code = 1975-2) 1.3 mg/dL ALKALINE PHOSPHATASE (test code = 6768-6) 55 U/L AST (test code = 1920-8) 20 U/L ALT (test code = 1742-6) 15 U/L Cody FernandezHEMOGLOBIN [id number] 00:00:00* Test Item Value Reference Range Interpretation Comme elisabeth HEMOGLOBIN A1c (test code = 4548-4) 6.1 %oftotalHgb Cody Calderon AustinLIPID PANEL (REFL)2024-04-22 00:00:00* Test Item Value Reference Range Interpretation Comme nts CHOLESTEROL, TOTAL (test cod e = 2093-3) 147 mg/dL HDL CHOLESTEROL (test code = 2085-9) 45 mg/dL TRIGLYCERIDES (test code = 2571-8) 137 mg/dL LDL-CHOLESTEROL (test code = 97371-7) 78 mg/dL(calc) CHOL/HDLC RATIO (test code = 9830-1) 3.3 (calc) NON HDL CHOLESTEROL (test code = 06068-6) 102 mg/dL(calc) Cody FernandezCOMPREHENSIVE METABOLIC [id number] 00:00:00* Test Item Value Reference Range Interpretation Comme nts GLUCOSE (test code = 2345-7) 105 mg/dL UREA NITROGEN (BUN) (test code = 3094-0) 13 mg/dL CREATININE (test code = 2160-0) 1.08 mg/dL EGFR (test code = 75427-6) 74 mL/min/1.73m2 BUN/CREATININE RATIO (test code = 3097-3) SEE NOTE: (calc) SODIUM (test code = 2951-2) 141 mmol/L POTASSIUM (test code = 2823-3) 3.6 mmol/L CHLORIDE (test code = 2075-0) 104 mmol/L CARBON DIOXIDE (test code = 2027-9) 30 mmol/L CALCIUM (test code = 62119-3) 9.3 mg/dL PROTEIN, TOTAL (test code = 2885-2) 6.9 g/dL ALBUMIN (test code = 1751-7) 4.4 g/dL GLOBULIN (test code = 56864-4) 2.5 g/dL(calc) ALBUMIN/GLOBULIN RATIO (test code = 1759-0) 1.8 (calc) BILIRUBIN, TOTAL (test code = 1975-2) 1.3 mg/dL ALKALINE PHOSPHATASE (test code = 6768-6) 55 U/L AST (test code = 1920-8) 20 U/L ALT (test code = 1742-6) 15 U/L Cody FernandezHEMOGLOBIN [id number] 00:00:00* Test Item Value Reference Range Interpretation Comme nts HEMOGLOBIN A1c (test code = 4548-4) 6.1 %oftotalHgb Cody Fernandez Notes Date/Time Note Provider Source 2024-11-04 11:25:33 Received a cardiac clearance from [facility], placed in Dr. Partida's folder for review. WAREHOUSE ASSOCIATE Danyelle Mason MA [facility] Cody Chand [facility]2024-11-13 00:00:00 Cody Chand [facility]2024-10-30 08:00:00 Summary: stress test Sheri De Paz is a 69 year old male received to Nuclear Medicine for Stress Test. Pt is AAOx4 and is in NAD. Pt identified using Name & . Pt endorses no caffeine intake for 24 hrs and being NPO at least 4 hrs. PIV placed at right hand. Indication for this Stress Test is chest pain. NM Tech monitoring is Abdifatah . Last caffeine intake @ > 12 hours Supervising physician helga obtained consent at 07/16/24 Time out completed 949 Lexiscan 0.4mg/5mL injected at 0949, followed by 5mL NS flush. Pre Stress Test vitals are: BP 129/86 HR 69 Resp 20 O2 sat 99 Injection vitals are: BP 139/71 HR 90 Resp 20 O2 sat 99 Recovery vitals are: BP 134/68 HR 87 Resp 20 O2 sat 99 [facility]ry[facility]og1206-87-53 15:46:18 Images from the original note were not included. Notified pt of physician review and recommendations. Pt states he will discuss this at his appt on 07/07/24. Carson Partida MD P Cardiology Nurse Cardiac event monitor showed 2% PVCs and nonsustained V. tach. I recommend Lexiscan nuclear stress test if he is agreeable. Kristine Gonzalez [facility] [id number] 15:30:00 Patient was enrolled for 30 day event monitor to be mailed to home for self hook-up. Patient already aware of plan from [facility]. Iza Stark [facility] [id number] 00:00:00 [facility]2024-04-17 00:00:00 [facility]
[2024-12-19 10:26] VITALS: BMI 30.5
[2024-12-19] MEDS ORDERED: MELATONIN 3 MG TABLET PO PRN (10:54)
[2024-12-19 19:16] LABS: Specific Gravity 1.021 (1.005-1.030); Sqamous Epithelial None Seen /HPF (None Seen); Urine Bacteria None Seen /HPF (<20); Urine Bilirubin NEGATIVE (Negative); Urine Blood Negative (Negative); Urine Clarity Clear (Clear); Urine Color Yellow (Yellow); Urine Crystals Unidentified Few /HPF (None Seen); Urine Culture Reflex Order NOT NEEDED; Urine Glucose NEGATIVE (Negative); Urine Ketones NEGATIVE (Negative); Urine Micro Reflex YN NO BILL MICROSCOPIC; Urine Mucus Slight /HPF (None Seen); Urine Nitrite NEGATIVE (Negative); Urine Protein TRACE (Negative); Urine RBC <5 /HPF (None Seen); Urine Urobilinogen 2+ (Normal); Urine WBC <5 /HPF (<5)
[2024-12-19] MEDS: APIXABAN 2.5 MG TABLET PO SCH (19:17)
[2024-12-19] MEDS: DOCUSATE NA/SENNA CONC 1 TAB PO PRN (19:18)
[2024-12-19] MEDS: MAGNESIUM OXIDE 400 MG TAB PO SCH (19:18)
[2024-12-19] MEDS: ENSURE ENLIVE 237 ML CAN PO SCH (19:19)
--- NOTE | 2024-12-19 19:35 | HP ---
Date of Admission: 12/19/2024 Time Of Service: 2:00 p.m. Chief Complaint: "My right hip was replaced and will get better." History Of Present Illness: Mr. De Paz is a 69-year-old patient with hypertension, dyslipidemia, an d chronic back pain has improved after physical therapy, who had progressive right hip degenerative a rthritic changes that did not respond to conservative treatment. He was electively admitted for righ t hip arthroplasty on 12/16/2024. He reported prior to the surgery suffering pain in hip for years a nd it gradually decreased his activity level making it difficult for him to mobilize, ambulate, and t romeo care of all his activities of daily living. Postoperatively, he did have medical concerns, which include orthostatic hypertension, dyslipidemia, hypertension in addition to the back pain, which has improved. He required treatment for DVT prophylaxis with Lovenox injections. He had echocardiogram and Doppler study to rule out risks prior to his surgery. He was initially on high-dose oxygen, but then was able to be weaned off to room air. His hospital course was complicated by infection leadin g to sepsis and was treated for that. He had hypotension and lack of mobility, decreased physical fu nctioning. He has elevated white blood cell count and glucose with low hemoglobin and hematocrit wer e addressed. Prior to the patient coming in, he was independent using no assistive device despite of his pain. He was able to drive, clean, and take care of his home with his . Currently, he requ ires minimum to moderate assistance for all transfers, ambulation just 4 steps with a rolling walker. He requires frequent monitoring for his blood pressure and he is also requiring DVT prophylaxis. I n addition, he requires his hemoglobin and hematocrit be followed to determine if he requires possibl e transfusion and white blood cell count followed to rule out any potential systemic infection that m ay lead to sepsis. He is therefore admitted to the inpatient unit for physical and child and adolescent therapist apy. He will benefit significantly and help him to reduce the risk of rehospitalization and help him return to prior level of functioning. If he is discharged home or to half-way, chances are h e will not improve as well. Allergies: DULOXETINE. Past Surgical History: He had right sided hernia repair in 2000. History of black spider bite . X-ray/imaging: Hip x-ray on 12/16/2024 shows expected intraoperative appearance of the right hip art hroplasty components. Carotid ultrasound on 12/17/2024, elevated velocity of the right internal nicholson tid artery. Borderline study ratio, which suggests moderate stenosis. There was also elevated peak in the left common carotid, but without abnormal Doppler color, likely not hemodynamically significan t. Chest x-ray on 12/18/2024, no acute intrathoracic abnormalities. Laboratory Studies: White blood cell count 11.6, hemoglobin 11.4, hematocrit is 33. His platelets a re 147. His sodium 140, potassium 3.6, glucose 129, BUN 11, creatinine 0.99, calcium 7.9. Magnesium 2.0. Albumin 2.6. Family History: Noncontributory. Social History: No alcohol, tobacco, or IV drug use. The patient lives in a single family home with his . Review of Systems: Mild pain. He rates actually more stiffness and spasming in the right thigh and back of his leg sinc e he has been mostly in the bed. He says the pain perhaps maybe 3 or 4, but the spasming may be more noticeable in the leg. Current Medications: In terms of his current medications, Tylenol 500 mg every 6 hours as needed, ba clofen 5 mg daily, ferrous sulfate 325 mg daily, magnesium oxide 400 mg twice daily, melatonin 3 mg a t bedtime, Hemocyte Plus 1 tablet with breakfast, Ensure Enlive 237 mL twice daily, Senokot S 2 at be dtime, Ultram 50 mg every 6 hours as needed. Current Level Of Functioning: Currently, his grooming is supervision, bathing, moderate assistance; upper body dressing, supervision; lower body dressing and donning doffing footwear at moderate assist ance level. Toileting, moderate assistance. Transfer from bed to chair, to wheelchair, moderate ass istance. Toilet transfer, moderate assistance. Ambulation, moderate assistance covering 3 feet. Physical Examination: Vital Signs: Blood pressure is 126/62, pulse 75, respiratory rate 18, temperature 98.1, oxygen satur ation 95%. Weight 195 pounds, height 5 feet 7 inches, BMI of 30.5. General: Mr. Baldev mora is resting comfortably in a chair beside bed. HEENT: He is normocephalic, atraumatic. Sclerae anicteric. Oropharynx pink and moist. Neck: Supple. Chest: Clear. Heart: Regular. Extremities: No significant clubbing, cyanosis, or edema. Mild postoperative changes expected in th e right lower extremity. He has good hemostasis at the surgical site. Rehab And Medical Assessment And Plan: Mr. De Paz is a 69-year-old patient admitted to the [facility] rehabilitation unit with impairment category 08 that is replacement of lower extremity. His impair ment group code is 08.51, unilateral hip replacement. Etiologic diagnosis: Severe right hip arthrit is. His comorbid conditions include hypertension, dyslipidemia in addition to chronic back pain that is mitigated and right lower extremity muscle spasms. Plan: Have physical and occupational therapy 3 hours a day, 5 of 7 days. DVT prophylaxis provided b y Eliquis 2.5 mg twice daily. Muscle spasms addressed with baclofen 5 mg daily. Anemia, addressing that with ferrous sulfate 325 mg daily. Magnesium oxide also for muscle spasm. Melatonin given for insomnia, Hemocyte Plus for his anemia, Ensure Enlive for poor nutrition, and tramadol for pain along with Senokot for constipation. Comorbidities That Are Impacting Rehabilitation: He does have an increased risk of infection. He wi ll have blood work and chest x-ray and urinalysis followed. He has a history of back pain that impro marcelino with physical therapy previously. If need be, pain patch will be applied to the back. Tramadol again on board. Erieville may be used if need be. Pain patch also may be used in the right thigh if nee d be. Otherwise, his risk of an orthostatic set of changes will be watched for and if need be, midod rine will be added along with Florinef. Rehab Specific Plan: Mr. De Paz will have physical and occupational therapy 3 hours a day, 5 of 7 d ays to improve his ability to transfer from bed to chair, to toilet, to a wheelchair. Mobilize a whe elchair and ambulate with a walker, on and off the toilet, in and out shower. Therapy will help with his upper and lower body dressing, donning and doffing of footwear. Next, his cognitive issues will be addressed if need be for him to maintain good safety awareness, decision making, medication manag ement, and reduce risk of injury. Mr. De Paz has a good understanding of the process of admission to the inpatient rehabilitation unit , how he will benefit from physical and occupational therapy. He will have 24 hours a day, 7 days a week skilled rehabilitation and nursing, daily physician evaluation and management, and social servic es evaluation and management for discharge planning, home equipment, and to continue therapy after hi s discharge. In addition, his followup with orthopedic surgeon. If need be, additional help from [facility] hospitalist and discharge will be sought. Barriers To Discharge: Currently, he has limited barriers to discharge. He is to go back home. He was doing very well previously. There is a risk of him worsening with infection that will be watched for. If he does have a prolonged stay, he may end up going to half-way, but that is not fore seen at this point. Length Of Stay: About 10-14 days. Disposition: Back home with family and continue therapy via Home Health or outpatient depending how well he does. Prognosis: Good. Code Status: Full code. Rehab Specific Goals: 1. Become independent with upper and lower body dressing and donning and doffing footwear. 2. Independently mobilize 250 feet with a rolling walker. Mobilize a wheelchair 250 feet and up and down 10 steps with bilateral handrails. 3. Independently perform all cognitive functioning and safety awareness issues to be addressed indepe ndently. The above goals were reviewed with Mr. De Paz and he is in agreement. By signing this document, I acknowledge I personally performed a full physical examination on Mr. Jarret kay no later than 24 hours after his admission to the inpatient rehabilitation unit and determined t hat he is able to tolerate the above course of treatment at an intensive level for reasonable period of time. A detailed individualized plan of care for him will be completed by hospital day 4 based on the preadmission screen, history and physical, and therapy evaluation. DESTIN/FAITH Voice ID: [id number]
[2024-12-19] MEDS: ACETAMINOPHEN 500 MG TAB PO PRN (23:09)
[2024-12-20 05:39] LABS: Absolute Basophils 0.1 K/uL (0-0.5); Absolute Eosinophils 0.1 K/uL (0-0.5); Absolute Lymphocytes (CBC) 2.3 K/uL (0.7-4.9); Absolute Neutrophil 5.8 K/uL (1.8-8.0); Basophils % 0.6 % (0-1.3); Eosinophils % 0.8 % (0-4.4); Hematocrit 33.8 % (39.6-49.0); Lymphocytes % 25.1 % (15.3-44.8); MCH 31.9 pg (27.0-35.0); MCHC 35.4 g/dL (32.0-36.0); MCV 90.1 fL (80-100); MPV 8.2 fL (7.6-11.3); Monocytes % 10.9 % (3.3-12.3); Neutrophils % 62.6 % (41.7-73.7); Platelets 196 thou/uL (152-406); RBC Red Blood Cell Count 3.76 M/uL (4.33-5.43); Red Cell Distribution Width 14.1 % (12.1-15.2)
[2024-12-20 05:53] LABS: Albumin 2.5 g/dL (3.4-5.0); Anion Gap 5.8 mEq/L (5.0-15.0); Magnesium 2.2 mg/dL (1.6-2.4); Potassium 3.8 mEq/L (3.5-5.1); Prealbumin 12.3 mg/dL (20-40)
[2024-12-20] MEDS: FERROUS SULFATE 325 MG TAB PO SCH (07:58)
[2024-12-20] MEDS: ASPIRIN EC 81 MG TAB PO SCH (07:58)
[2024-12-20] MEDS: hydroCHLOROthiazide 25 MG TAB PO SCH (07:59)
[2024-12-20] MEDS: FE SULF/FA/VIT B COMP & C TAB PO SCH (07:59)
[2024-12-20] MEDS: lisinopriL 20 MG TAB PO SCH (07:59)
[2024-12-20] MEDS: BACLOFEN 10 MG TAB PO SCH (07:59)
[2024-12-20] MEDS: ROSUVASTATIN 10 MG TAB PO SCH (19:36)
[2024-12-20] MEDS: MELOXICAM 7.5 MG TAB PO PRN (19:55)
--- NOTE | 2024-12-22 17:01 | RAD REPORT ---
EXAMINATION:Lower Extremity Artery Uni Ltd CLINICAL INDICATION: Male, 69 years old. calf pain RIGHT TECHNIQUE: Arterial duplex ultrasound was performed of the right lower extremity with real-time, colo r-flow, and spectral wave Doppler evaluation. Ankle brachial indices were not performed. COMPARISON: No prior exam. FINDINGS: Mild plaque throughout the evaluated arterial system. Triphasic waveforms are seen throughout the evaluated right lower extremity arterial system, to the l evel of the dorsalis pedis artery. No other suspicious findings. IMPRESSION: No evidence of significant peripheral vascular disease.
[2024-12-22] MEDS: GABAPENTIN 100 MG CAP PO SCH (19:55)
--- NOTE | 2024-12-22 23:03 | PN ---
Date of Progress Note: 12/22/2024 Time Of Service: 1:25 p.m. Subjective: Mr. De Paz is doing very well. He is at the gym, doing therapy. There were some swell ing and tightness in the right lower extremity. He does have a right hip total arthroplasty after ri ght hip arthritis and failed to respond to conservative treatment. He still is doing very well with therapy. Despite that, he said the leg feels stiff perhaps from the swelling in the leg and in the t high area. He does not have any significant pain in the right hip surgical site; however, when he st ands and begins to ambulate, there is some pain at the distal thigh area, but that pain is manageable . Objective: No fevers, chills, nausea, vomiting. Again, mild myalgias and arthralgias in the right l ower extremity. Otherwise, no new complaints. Physical Examination: Vital Signs: Blood pressure 123/60, pulse 75, respiratory rate of 16, temperature 97.2, oxygen satur ation 97%. General: Mr. De Paz is resting in a chair. He is in no significant distress. HEENT: He is normocephalic, atraumatic. Sclerae are anicteric. Oropharynx pink and moist. Neck: Supple. Chest: Clear. Extremities: His right lower extremity shows mild swelling in the calf area. There is no tenderness to palpation in that area. Laboratory Studies: Complete blood count differential; white blood cell count 9.3, hemoglobin 12.0, platelets 196. Sodium 141, potassium 3.8, chloride 110, carbon dioxide 29, BUN 13, creatinine 0.91, glucose 118, calcium 8.4, magnesium 2.2, albumin 2.5, prealbumin 12.3. Urinalysis; 2+ urobilinogen, trace protein. X-ray/imaging: The patient did have a Doppler study of the right lower extremity. This study showed no deep vein thrombus in the lower extremity on the right. Medications: Tylenol Extra Strength 500 mg every 6 hours as needed, aspirin 81 mg daily, baclofen 5 mg daily, Lovenox 40 mg subcutaneously daily, ferrous sulfate 325 mg daily, gabapentin 100 mg twice d aily, HydroDIURIL 25 mg daily, lidocaine patch apply topically to the right thigh area daily, Prinivi l 20 mg daily, magnesium oxide 400 mg twice daily, melatonin 3 mg at bedtime, Mobic 15 mg daily, Hemo cytePlus 1 tablet with breakfast, Ensure Enlive 237 mL twice daily, Crestor 20 mg at bedtime, Senokot -S 2 tablets at bedtime, tramadol 50 mg every 6 hours as needed. Progress Made With Physical And Occupational Therapy: Today, with physical therapy, bed mobility inc luding turning and getting supine to sit done with minimum assistance and some cuing, transfers and s obrl-do-tzrsi transfers, qcd-ig-jhkat transfers done with minimum to contact guard assistance. He al so ambulated 200 feet with contact guard assistance, up and down 15 steps with minimal assistance, an d mobilized wheelchair 150 feet with supervision to modified independence. With occupational therapy , propel a wheelchair from room to gym with supervision. No significant pain at that time. Assessment: Mr. De Paz is a 69-year-old patient with severe right hip osteoarthritis, status post h ip replacement. Still has mild decreased mobility, decreased physical functioning, mild pain in righ t lower extremity, some swelling and tightness with negative DVT workup. He does have dyslipidemia. Risk of DVT is still present. He has mild malnutrition and anemia, hypertension, neuropathic pain, muscle spasm as noted, and stroke risk. Plan: He will continue physical and occupational therapy 3 hours a day, 5 of 7 days. He has a list of comorbid condition medications including to reduce risk of stroke with aspirin. DVT prophylaxis i s present with Lovenox. He did have earlier in the day blood clot in the urine, but all that cleared up subsequently and the Eliquis was switched from 2.5 mg daily to Lovenox 40 mg subcutaneously daily for DVT prophylaxis. All other comorbid condition medications are being continued and his comorbid conditions do not negatively impact his rehabilitation. DESTIN/FAITH Voice ID: [id number] Report ID: [id number]
[2024-12-23] MEDS: TRAMADOL HCL 50 MG TAB PO PRN (08:46)
[2024-12-23] MEDS: ENOXAPARIN 40 MG/0.4 ML SQ SCH (08:47)
[2024-12-23] MEDS: LIDOCAINE 4% PATCH TOP SCH (08:47)
[2024-12-23] MEDS: BACLOFEN 10 MG TAB PO SCH (21:03)
--- NOTE | 2024-12-23 21:23 | PN ---
Date of Progress Note: 12/23/2024 Time Of Service: 1:25 p.m. Subjective: Mr. De Paz is in the gym doing very well without any significant pain. When he is ambu lating, much less pain in the right lower extremity. Swelling is slightly improved in the right lowe r extremity. He has been ruled out for Doppler with a negative DVT study done. Objective: He denies any significant fevers, chills, nausea, vomiting. Some mild arthralgias and my algias in the right lower extremity as noted previously. Physical Examination: Vital Signs: Blood pressure is 138/60, pulse 74, respiratory rate 16, temperature 97.8, oxygen satur ation 95%. General: Mr. De Paz is sitting in a physical therapy session. HEENT: He appears normocephalic, atraumatic. Sclerae are anicteric. Oropharynx pink and moist. Neck: Supple. Chest: Clear. Extremities: His right lower extremity, he has good hemostasis in the right hip surgical site. He h as mild edema in the right lower extremity proximally and distally, but no pain on palpation of the c correction area. Laboratory Studies: No new laboratory studies. X-ray/imaging: No new x-rays or imaging. Medications: His medications have been reviewed and are unchanged. Progress Made With Physical And Occupational Therapy: With physical therapy today, he completed bed mobility with contact guard assistance. He ambulated 250 feet with contact guard assistance with a r olling walker, did have decreased pain, improved weightbearing. Car transfers simulated with contact guard assistance. With his occupational therapy, bed mobility did have a left leg portable grinding machine operator, was done independently. Npi-ig-jpiuu transfers with supervision. IADLs were performed with standby assistanc e. With occupational therapy, supervision for usz-mt-aflob transfers, ambulated from room to bathroo m with a rolling walker. Continued with supervision, supervision for toilet hygiene after bowel move ments while adhering to hip precautions with the right hip. Assessment: Mr. De Paz is a 69-year-old patient in rehabilitation unit with severe right hip arthri tis, status post right total hip replacement. He still has mild decreased mobility, decreased physic al functioning, dyslipidemia, constipation. He has hypertension, neuropathic pain, muscle spasms, st roke risk. Plan: He will continue with physical and occupational therapy 3 hours a day, 5 of 7 days. He has a gabapentin on board, which is very helpful. He has baclofen for muscle spasms in addition to Mobic a nd tramadol, which is scheduled to help him. He has Crestor for dyslipidemia, Senokot for constipati on, ferrous sulfate for malnutrition, Lovenox for DVT prophylaxis, and all those were continued. In terms of plan, physical and occupational therapy 3 hours a day, 5 of 7 days. We will continue with c omorbid condition medications as noted. The patient will be discharged in 2 days. He will continue therapy recommended outpatient. The patient may actually have Home Health initially and then outpati ent therapy following that. DESTIN/FAITH Voice ID: [id number] Report ID: [id number]
--- NOTE | 2024-12-24 21:04 | PN ---
Date of Progress Note: 12/24/2024 Time Of Service: 1:25 p.m. Subjective: Mr. De Paz is in the gym, doing very well. Again, happy with therapy. He has less sw elling in the right lower extremity. There is no DVT that has been ruled out by negative Doppler robb dy and again he is very happy, ready for discharge in 2 days. Review of Systems: No fevers, chills, nausea, vomiting. Only mild pain when he puts some weight on the right lower extr emity from the right hip replacement. Physical Examination: Vital Signs: Blood pressure is 126/62, pulse 78, respiratory rate 18, temperature 97.9, oxygen satur ation 96%. General: Mr. De Paz again is sitting in the gym, doing very well with his therapy, raising the [employer] bars. HEENT: He is normocephalic, atraumatic. Sclerae anicteric. Oropharynx pink and moist. Neck: Supple. Chest: Clear. Extremities: Right lower extremity shows improved swelling, less tenderness in the calf area. Laboratory Studies: No new laboratory studies. X-ray/imaging: No new x-rays or imaging. Medications: Medications have been reviewed and are unchanged. Progress Made With Physical And Occupational Therapy: Today with his physical therapy, he did comple te 250 feet, contact guard assistance with a rolling walker, was able to feel very well about that. He did have SORAIDA hose and socks on in the right lower extremity with some decrease in swelling noted t here. With his occupational therapy, he was doing very well. Pain was managed well. He was indepen dent with mny-rt-zgnjz; independent with toilet transfers; independent with wheelchair, to edge of be d transfers; toilet hygiene, independent; upper and lower body dressing, independent; and footwear, i ndependent. Assessment: Mr. De Paz is a 69-year-old patient in rehabilitation unit with replacement of the righ t hip after severe arthritis. He has mild decreased mobility, decreased physical functioning. Still has mild muscle spasms, which has improved. He does have pain control with tramadol, now scheduled today, Crestor for dyslipidemia, Ensure Enlive for malnutrition, Hemocyte Plus for his mild anemia. He has Mobic for inflammatory nonsteroidal control of inflammation. He has Prinivil for his blood pr essure, lidocaine patch on board, HydroDIURIL for fluid management, gabapentin for neuropathic pain, Lovenox for DVT prophylaxis, aspirin for stroke risk reduction. Plan: Will be to continue with physical and occupational therapy 3 hours a day, 5 of 7 days. Contin ue all comorbid condition medications. He will be discharged on Sunday. We will continue therapy via outpatient therapy. CLAYTON Voice ID: [id number] Report ID: [id number]
[2024-12-25 07:23] LABS: Absolute Basophils 0.1 K/uL (0-0.5); Absolute Eosinophils 0.2 K/uL (0-0.5); Absolute Lymphocytes (CBC) 2.3 K/uL (0.7-4.9); Absolute Neutrophil 5.7 K/uL (1.8-8.0); Basophils % 1.1 % (0-1.3); Eosinophils % 1.8 % (0-4.4); Hematocrit 36.2 % (39.6-49.0); Hemoglobin 12.5 g/dL (13.6-17.9); Lymphocytes % 24.6 % (15.3-44.8); MCH 31.1 pg (27.0-35.0); MCHC 34.5 g/dL (32.0-36.0); MPV 7.6 fL (7.6-11.3); Monocytes % 10.3 % (3.3-12.3); Neutrophils % 62.2 % (41.7-73.7); Nucleated Red Blood Cells % 0.1 % (0-0); Platelets 348 thou/uL (152-406); RBC Red Blood Cell Count 4.03 M/uL (4.33-5.43); Red Cell Distribution Width 13.6 % (12.1-15.2)
[2024-12-25 08:51] LABS: Anion Gap 7.1 mEq/L (5.0-15.0); Magnesium 2.6 mg/dL (1.6-2.4); Potassium 4.1 mEq/L (3.5-5.1); Prealbumin 21.7 mg/dL (20-40)
--- NOTE | 2024-12-25 22:44 | PN ---
Date of Progress Note: 12/25/2024 Time Of Service: 1:25 p.m. Subjective: Mr. De Paz is doing excellent. He is very happy with his therapy so far. Right lower extremity has less swelling. He has SORAIDA hose and socks above that. Denies any significant pain as h frederic is mobilizing and ambulating now, perhaps 1 or 0. Review of Systems: No fevers, chills, nausea, vomiting. No significant myalgias, arthralgias, rash, or other complaints regarding the right lower extremity. Physical Examination: Vital Signs: Blood pressure 125/68, pulse 77, respiratory rate 20, temperature 97.5, oxygen saturati on 98%. General: Mr. De Paz is resting comfortably. He is in no significant distress. He is sitting in a chair beside bed. HEENT: He is normocephalic, atraumatic. Sclerae anicteric. Oropharynx moist. Neck: Supple. Chest: Clear. Extremities: No significant edema noted now in the right lower extremity. Laboratory Studies: No new laboratory studies. X-ray/imaging: No new x-rays or imaging. Medications: Reviewed and are unchanged. Progress Made With Physical And Occupational Speech Therapy: Today, he is ambulating very well, cove ring over 250 feet multiple times with a rolling walker. He has SORAIDA hose and socks on in the right l ower extremity and he is able to independently do sit to stand, orucv-vy-gnslx transfers and wheelcha ir transfers, toilet hygiene, all independent. Footwear, independent. Assessment: Mr. De Paz is a 69-year-old patient in rehabilitation unit with severe right hip arthri tis, status post replacement. He has much improved mobility and physical functioning. Muscle spasms have improved significantly and anemia addressed with Hemocyte plus. Mobic addressing his inflammat ion. Prinivil for blood pressure. He has Lovenox for deep vein thrombosis prophylaxis, Ensure Enliv e for malnutrition, Crestor for dyslipidemia, aspirin for stroke risk reduction. Plan: We will continue with physical and occupational therapy 3 hours a day, 5 of 7 days. His list of comorbid condition medications will be continued. The patient will be discharged on Sunday that is in 2 days. He will continue his therapy recommended outpatient. He is doing excellent in terms of his physical and occupational therapy. All comorbid condition medications will be continued. The patient will follow up with Orthopedic Surgery after and he is of course on weightbearing as tolerat ed status. LB/MODL Voice ID: [id number] Report ID: [id number]
--- NOTE | 2024-12-26 13:47 | P.RH.PN ---
Estimated Length of Stay: 8 Expected Discharge Date: 12/27/24 Discharge Disposition Plan: Home Family Support: Yes [employer]ographic Met[employer] Goal: Mobility, Transfers, Self Care Vital Signs: Last Vital Signs Temp 97.8 F 12/26/24 06:50 Pulse 67 12/26/24 08:17 Resp 14 12/26/24 06:50 BP 119/59 L 12/26/24 08:17 Pulse Ox 96 12/26/24 06:50 Laboratory: Laboratory Last Values WBC 9.20 thou/uL (4.3-10.9) 12/25/24 06:57 RBC 4.03 M/uL (4.33-5.43) L 12/25/24 06:57 Hgb 12.5 g/dL (13.6-17.9) L 12/25/24 06:57 Hct 36.2 % (39.6-49.0) L 12/25/24 06:57 MCV 90.0 fL (80-100) 12/25/24 06:57 MCH 31.1 pg (27.0-35.0) 12/25/24 06:57 MCHC 34.5 g/dL (32.0-36.0) 12/25/24 06:57 RDW 13.6 % (12.1-15.2) 12/25/24 06:57 Plt Count 348 thou/uL (152-406) 12/25/24 06:57 MPV 7.6 fL (7.6-11.3) 12/25/24 06:57 Neutrophils % 62.2 % (41.7-73.7) 12/25/24 06:57 Lymphocytes % 24.6 % (15.3-44.8) 12/25/24 06:57 Monocytes % 10.3 % (3.3-12.3) 12/25/24 06:57 Eosinophils % 1.8 % (0-4.4) 12/25/24 06:57 Basophils % 1.1 % (0-1.3) 12/25/24 06:57 Absolute Neutrophils 5.7 K/uL (1.8-8.0) 12/25/24 06:57 Absolute Lymphocytes 2.3 K/uL (0.7-4.9) 12/25/24 06:57 Absolute Monocytes 1.0 K/uL (0.1-1.3) 12/25/24 06:57 Absolute Eosinophils 0.2 K/uL (0-0.5) 12/25/24 06:57 Absolute Basophils 0.1 K/uL (0-0.5) 12/25/24 06:57 Sodium 138 mEq/L (136-145) 12/25/24 08:14 Potassium 4.1 mEq/L (3.5-5.1) 12/25/24 08:14 Chloride 104 mEq/L (98-107) 12/25/24 08:14 Carbon Dioxide 31 mEq/L (21-32) 12/25/24 08:14 Anion Gap 7.1 mEq/L (5.0-15.0) 12/25/24 08:14 BUN 19 mg/dL (7-18) H 12/25/24 08:14 Creatinine 0.99 mg/dL (0.70-1.30) 12/25/24 08:14 Est GFR (CKD-EPI) 82 ml/min (=/>90) L 12/25/24 08:14 Glucose 111 mg/dL (74-106) H 12/25/24 08:14 Calcium 9.1 mg/dL (8.5-10.1) 12/25/24 08:14 Magnesium 2.6 mg/dL (1.6-2.4) H 12/25/24 08:14 Albumin 3.0 g/dL (3.4-5.0) L 12/25/24 08:14 Prealbumin 21.7 mg/dL (20-40) 12/25/24 08:14 Urine Color Yellow (Yellow) 12/19/24 18:30 Urine Clarity Clear (Clear) 12/19/24 18:30 Urine pH 7.0 (5.0-7.0) 12/19/24 18:30 Ur Specific Elmo 1.021 (1.005-1.030) 12/19/24 18:30 Glucose (UA)(Auto) Negative (Negative) 12/19/24 18:30 Urine Ketones Negative (Negative) 12/19/24 18:30 Urine Blood Negative (Negative) 12/19/24 18:30 Urine Nitrite Negative (Negative) 12/19/24 18:30 Urine Bilirubin Negative (Negative) 12/19/24 18:30 Urine Urobilinogen 2+ (Normal) H 12/19/24 18:30 Ur Leukocyte Esterase Negative Leon/uL (Negative) 12/19/24 18:30 Urine RBC <5 /HPF (None Seen) 12/19/24 18:30 Urine WBC <5 /HPF (<5) 12/19/24 18:30 Ur Squamous Epith Cells None seen /HPF (None Seen) 12/19/24 18:30 U Non-Squamous Epi Cells <5 /HPF (None Seen) 12/19/24 18:30 Unidentified Crystals Few /HPF (None Seen) 12/19/24 18:30 Urine Bacteria None seen /HPF (<20) 12/19/24 18:30 Urine Mucus Slight /HPF (None Seen) 12/19/24 18:30 Ur Microscopic Review Cancelled 12/19/24 18:30 Urine Culture Reflexed Not needed 12/19/24 18:30 Urine Total Protein Trace (Negative) H 12/19/24 18:30 Weight: 195 lb Wound Present: No Closed Surgical Incision Present: Yes Negative Pressure Wound Therapy Present: No Physician Update: Doing very well with all therapy. Labs reviewed and are stable. He is modified independent with his PT and OT. Right leg swelling and stiffness has improved. Met all goals with therapy. Will d/c in AM with out patient therapy. RW 750', up and down 25 steps and 250' with WC independently. Follows his right hip precautions very well. Summary: Patient's care plan and fci goals have been reviewed and revised as necessary. Please see the Rehabilitation Signature page for all necessary signatures.
[2024-12-27 06:47] VITALS: BP 110/58; TEMP 97.4
== END 2024-12-27 10:45 | disposition home or self-care (01) | DRG 560 ==
LOC: 5TH 10:22
PROVIDERS: ADMIT Psychiatry & Neurology Neurology with Special Qualifications in Child Neurology; ATTEND Psychiatry & Neurology Neurology with Special Qualifications in Child Neurology
DX: Z47.1 Aftercare following joint replacement surgery (principal); E44.1 Mild protein-calorie malnutrition; Z68.30 Body mass index [BMI] 30.0-30.9, adult; M62.838 Other muscle spasm; I10 Essential (primary) hypertension; M79.2 Neuralgia and neuritis, unspecified; D64.9 Anemia, unspecified; M54.50 Low back pain, unspecified; G89.29 Other chronic pain; E78.5 Hyperlipidemia, unspecified; G47.00 Insomnia, unspecified; K59.00 Constipation, unspecified; R68.89 Other general symptoms and signs
CPT/HCPCS: 36415; 80048; 81001; 82040; 83735; 84134; 85025; 87086; 87088; 93926; 97112; 97116; 97163; 97165; 97530; 97542; J1650; J2003